=== PATIENT | male | born 1960 | race Caucasian/White ===

== ENCOUNTER 2018-07-01 08:14 | Observation (INO) | payer MEDICARE, MEDICAID ==
[2018-07-01] MEDS ORDERED: ASPIRIN 81 MG TABLET, CHEWABLE PO ONE (08:44)
--- NOTE | 2018-07-01 09:12 | RADIOLOGY REPORT (SQ) ---
EXAM DESCRIPTION: CHEST SINGLE VIEW COMPLETED DATE/TIME: 07/01/2018 9:00 am REASON FOR STUDY: lef neck and shoulder pain COMPARISON: None. EXAM PARAMETERS: NUMBER OF VIEWS: One view. TECHNIQUE: Single frontal radiographic view of the chest acquired. RADIATION DOSE: NA LIMITATIONS: None. FINDINGS: LUNGS AND PLEURA: No opacities, masses or pneumothorax. No pleural effusion. MEDIASTINUM AND HILAR STRUCTURES: No masses. Contour normal. HEART AND VASCULAR STRUCTURES: Heart normal in size. Normal vasculature. BONES: No acute findings. HARDWARE: None in the chest. OTHER: No other significant finding. IMPRESSION: NO ACUTE RADIOGRAPHIC FINDING IN THE CHEST. TECHNICAL DOCUMENTATION: JOB ID: [id number] [email or web address]- All Rights Reserved Reading location - IP/workstation name: [email or web address]
[2018-07-01 09:33] LABS: ABSOLUTE BASOPHILS # (AUTO) 0.1 10^3/uL (0.0-0.2); ABSOLUTE EOSINOPHILS # (AUTO) 0.1 10^3/uL (0.0-0.6); ABSOLUTE LYMPHOCYTES (AUTO) 0.8 10^3/uL (0.5-4.7); ABSOLUTE MONOCYTES (AUTO) 1.1 10^3/uL (0.1-1.4); ABSOLUTE NEUT (AUTO) 8.8 10^3/uL (1.7-8.2); BASOPHILS % (AUTO) 0.5 % (0-2); EOSINOPHILS % (AUTO) 0.9 % (0-6); HEMATOCRIT 45.7 % (37.9-51.0); HEMOGLOBIN 15.7 g/dL (13.5-17.0); LYMPHOCYTES % (AUTO) 7.4 % (13-45); MEAN CORPUSCULAR HEMOGLOBIN 31.7 pg (27.0-33.4); MEAN CORPUSCULAR HGB CONC 34.4 g/dL (32.0-36.0); MEAN CORPUSCULAR VOLUME 92 fl (80-97); MONOCYTES % (AUTO) 10.4 % (3-13); PLATELET COUNT 240 10^3/uL (150-450); RED BLOOD COUNT 4.96 10^6/uL (4.35-5.55); RED CELL DISTRIBUTION WIDTH 13.2 % (11.5-14.0); SEGMENTED NEUTROPHILS % (AUTO) 80.8 % (42-78); TOTAL CELLS COUNTED % (AUTO) 100 %; WHITE BLOOD COUNT 10.9 10^3/uL (4.0-10.5)
[2018-07-01] MEDS ORDERED: METHYLPREDNISOLONE INJ 125 MG/2 ML SDV IV ONE (09:35)
--- NOTE | 2018-07-01 09:39 | ER Document Report ---
ED General - General Chief Complaint: Sore Throat Stated Complaint: NECK PAIN Time Seen by Provider: 07/01/18 08:44 Mode of Arrival: Medic Information source: Patient, Relative - Sister Notes: 57-year-old normal weight, nondiabetic, nonhypertensive, non-smoker, non- hyperlipidemic c/o of left shoulder pain and bilateral neck pain since Friday worse with movement. He was doing yard work. He also started feeling sore throat on Friday. This morning at 5 he woke up and felt like he was having trouble breathing in his throat. No chest pain or shortness of breath. No nausea vomiting or diarrhea. No abdominal pain. No fever chills or sweats, no rash. 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 TRAVEL OUTSIDE OF THE [place] IN LAST 30 DAYS: No - Related Data Allergies/Adverse Reactions: coconut Allergy (Verified 07/01/18 08:50) Penicillins Allergy (Verified 07/01/18 08:50) Past Medical History - General Information source: Patient - Social History Smoking Status: Never Smoker Frequency of alcohol use: None Drug Abuse: None Lives with: Alone Family History: Reviewed & Not Pertinent Patient has suicidal ideation: No Patient has homicidal ideation: No - Medical History Notes: see above Renal/ Medical History: Denies: Hx Peritoneal Dialysis Past Surgical History: Reports: Hx Tonsillectomy Review of Systems - Review of Systems Constitutional: See HPI EENT: See HPI Cardiovascular: No symptoms reported Respiratory: No symptoms reported Gastrointestinal: No symptoms reported Genitourinary: No symptoms reported Male Genitourinary: No symptoms reported Musculoskeletal: See HPI Skin: No symptoms reported Hematologic/Lymphatic: No symptoms reported Neurological/Psychological: No symptoms reported Physical Exam - Vital signs Vitals: Temp Pulse Resp BP Pulse Ox 99.4 F 95 20 139/83 H 95 07/01/18 08:26 07/01/18 08:26 07/01/18 08:26 07/01/18 08:26 07/01/18 08:26 Interpretation: Normal, Febrile - mild - General General appearance: Appears well, Alert - HEENT Head: Normocephalic, Atraumatic Eyes: Normal Conjunctiva: Normal Pupils: PERRL Tympanic membrane: Normal Sinus: Normal Nasal: Normal Mouth/Lips: Normal Pharynx: Erythema - swelling edema to midline uvula, airway open, no compromise Neck: No: Lymphadenopathy - Respiratory Respiratory status: No respiratory distress Chest status: Nontender Breath sounds: Normal Chest palpation: Normal - Cardiovascular Rhythm: Regular Heart sounds: Normal auscultation Murmur: No - Abdominal Inspection: Normal Distension: No distension Bowel sounds: Normal Tenderness: Nontender Organomegaly: No organomegaly - Back Back: Normal, Nontender - Extremities General upper extremity: Normal inspection, Nontender, Normal color, Normal ROM , Normal temperature General lower extremity: Normal inspection, Nontender, Normal color, Normal ROM , Normal temperature, Normal weight bearing. No: Juliet's sign - Neurological Neuro grossly intact: Yes Cognition: Normal Orientation: AAOx4 [place] Coma Scale Eye Opening: Spontaneous [place] Coma Scale Verbal: Oriented [place] Coma Scale Motor: Obeys Commands Yosef Coma Scale Total: 15 Speech: Normal Motor strength normal: LUE, RUE, LLE, RLE Sensory: Normal - Psychological Associated symptoms: Normal affect, Normal mood - Skin Skin Temperature: Warm Skin Moisture: Dry Skin Color: Normal Skin irregularity: negative: Rash Course - Re-evaluation Re-evalutation: 07/01/18 12:01 Patient is feeling better after the Solu-Medrol and when I looked back at his uvula he had a spontaneously draining left peritonsillar purulent drainage. White count is mildly elevated. I ordered clindamycin 600 mg IV. 07/01/18 13:14 dr rodarte will admit the pt. the IV contrast CT of the neck result is pending. 07/01/18 13:23 - Vital Signs Vital signs: Temp Pulse Resp BP Pulse Ox 98.3 F 80 14 109/60 99 07/01/18 19:26 07/01/18 19:26 07/01/18 19:26 07/01/18 19:26 07/01/18 19:26 - Laboratory Result Diagrams: 07/01/18 09:04 07/01/18 09:04 Laboratory results interpreted by me: 07/01/18 07/01/18 07/01/18 09:04 09:04 10:43 WBC 10.9 H Seg Neutrophils % 80.8 H Lymphocytes % 7.4 L Absolute Neutrophils 8.8 H BUN 22 H Total Bilirubin 2.2 H ALT 17 L Creatine Kinase 44 L Urine Protein 30 H Urine Ketones 20 H Urine Urobilinogen 2.0 H Salicylates < 1.0 L Acetaminophen < 10 L Discharge - Discharge Clinical Impression: peritonsillar abscess draining, Uvular swelling Condition: Stable Disposition: ADMITTED INPATIENT Admitting Provider: Hospitalist Unit Admitted: Telemetry
[2018-07-01 10:03] LABS: ALANINE AMINOTRANSFERASE 17 U/L (21-72); ALBUMIN 4.6 g/dL (3.5-5.0); ALKALINE PHOSPHATASE 66 U/L (38-126); ANION GAP 11 (5-19); ASPARTATE AMINO TRANSFERASE 19 U/L (17-59); BILIRUBIN,DIRECT 0.4 mg/dL (0.0-0.4); BILIRUBIN,TOTAL 2.2 mg/dL (0.2-1.3); BLOOD UREA NITROGEN 22 mg/dL (7-20); CALCIUM 9.8 mg/dL (8.4-10.2); CARBON DIOXIDE 30 mmol/L (22-30); CHLORIDE 98 mmol/L (98-107); CREATINE KINASE 44 U/L (55-170); GLUCOSE 97 mg/dL (75-110); POTASSIUM 4.6 mmol/L (3.6-5.0); SODIUM 138.6 mmol/L (137-145); TOTAL PROTEIN 7.7 g/dL (6.3-8.2)
[2018-07-01 10:05] LABS: ACETAMINOPHEN < 10 ug/mL (10-30); ALCOHOL < 10 mg/dL (NONE DETECTED); SALICYLATE < 1.0 mg/dL (2.0-20.0)
[2018-07-01 10:14] LABS: CREATINE KINASE MB 0.22 ng/mL (<4.55)
[2018-07-01 10:15] LABS: TROPONIN I < 0.012 ng/mL
--- NOTE | 2018-07-01 10:46 | EKG REPORT ---
SEVERITY:- BORDERLINE ECG - SINUS RHYTHM PROBABLE LEFT ATRIAL ABNORMALITY : Confirmed by: Cheyanne Sommers 01-Jul-2018 10:45:18
[2018-07-01 11:16] LABS: APPEARANCE,URINE SLIGHTLY-CLOUDY; BILIRUBIN,URINE NEGATIVE (NEGATIVE); COLOR,URINE YELLOW; GLUCOSE, URINE NEGATIVE (NEGATIVE); KETONES,URINE 20 mg/dL (NEGATIVE); LEUKOCYTE ESTERASE,URINE NEGATIVE (NEGATIVE); NITRITE,URINE NEGATIVE (NEGATIVE); PROTEIN,URINE 30 mg/dL (NEGATIVE); URINE SPECIFIC GRAVITY 1.027
[2018-07-01 11:36] LABS: URINE AMPHETAMINES SCREEN NEGATIVE; URINE BARBITURATES SCREEN NEGATIVE; URINE BENZODIAZEPINES SCREEN NEGATIVE; URINE COCAINE SCREEN NEGATIVE; URINE MARIJUANA (THC) SCREEN NEGATIVE; URINE METHADONE SCREEN NEGATIVE; URINE PHENCYCLIDINE SCREEN NEGATIVE
[2018-07-01] MEDS ORDERED: RINGERS SOLUTION,LACTATED 1,000 ML IV PRN ×2 (11:52→13:09)
[2018-07-01] MEDS ORDERED: NORMAL SALINE 1000 ML 1,000 ML IV ONE (11:53)
[2018-07-01] MEDS ORDERED: CLINDAMYCIN 600 MG/D5W RTU 600 MG/50 ML RTUPB IV ONE (12:30)
--- NOTE | 2018-07-01 12:36 | ER Document Report ---
Doctor's Note Notes: 07/01/18 12:35 Patient was seen and evaluated. Does have an elevated WBC count and had difficulty breathing so EMS had to be notified to bring patient here. Looks like he may have a peritonsillar abscess. Will do CT scan at this time. Will anticipate admission for IV antibiotics. Consulted with Dr. Mota with ENT and he is comfortable keeping patient here. Will plan for admission shortly. I have seen and evaluated patient and agree with the treatment plan and medical decision making process as described in the nurse practitioner's note. 07/01/18 15:03
--- NOTE | 2018-07-01 14:24 | RADIOLOGY REPORT (SQ) ---
EXAM DESCRIPTION: CT SOFT TISSUE NECK WITH COMPLETED DATE/TIME: 07/01/2018 1:14 pm REASON FOR STUDY: neck swelling difficulty swallowing stridor, respiratory compromise COMPARISON: None. TECHNIQUE: Post IV contrasted scanning from skull base through lung apices with review of bone, soft tissue and lung windows. Reconstructed coronal and sagittal MPR images reviewed. All images stored on PACS. All CT scanners at this facility use dose modulation, iterative reconstruction, and/or weight based d osing when appropriate to reduce radiation dose to as low as reasonably achievable (ALARA). [facility]: Dose Right [facility]: CareDose [facility]: Dose Right [facility]: Teradose 4D [facility]: RTF Logic CONTRAST TYPE AND DOSE: contrast/concentration: Isovue 350.00 mg/ml; Total Contrast Delivered: 75.0 ml; Total Saline Delivered: 49.5 ml RENAL FUNCTION: Creatinine 1.1 RADIATION DOSE: CT Rad equipment meets quality standard of care and radiation dose reduction techniq ues were employed. CTDIvol: 11.8 mGy. DLP: 398 mGy-cm. . LIMITATIONS: None. FINDINGS: The uvula is markedly swollen, causing moderate narrowing of the nasopharynx. The left pharyngeal tonsil is asymmetrically enlarged, 4.3 cm craniocaudad by 2.4 cm AP by 2 cm trans verse, with the hypodensity 7 mm in size within the tonsil, worrisome for a small intra tonsillar abs cess. There is inflammation surrounding the left pharyngeal tonsil extending inferiorly into the left hypop harynx and left piriform recess region. No prevertebral phlegmon. Results discussed with Dr. Oconnor in the emergency room. SKULL BASE: Inferior brain parenchyma unremarkable MAJOR SALIVARY GLANDS: No solid or cystic masses. No inflammatory changes. LYMPHADENOPATHY: No adenopathy. MUCOSAL MASSES OR ASYMMETRY: As above LARYNX/CORDS: As above VASCULAR STRUCTURES: The major vessels are patent. LUNG APICES: Clear. BONES: Intact. THYROID: Normal size. No masses. PARANASAL SINUSES: Air-fluid level right maxillary sinus worrisome for acute sinusitis OTHER: Multiple advanced dental caries. IMPRESSION: Left pharyngeal tonsillitis with small intra tonsillar abscess. Inflammation surroundin g the left pharyngeal tonsil extending up into the soft palate/uvula and down into the supraglottic l arynx. Moderate nasopharyngeal airway narrowing from swelling of the uvula TECHNICAL DOCUMENTATION: JOB ID: [id number] Quality ID # [id number]: Final reports with documentation of one or more dose reduction techniques (e.g., Au tomated exposure control, adjustment of the mA and/or kV according to patient size, use of iterative reconstruction technique) 2010 [employer]- All Rights Reserved Reading location - IP/workstation name: [email or web address]
[2018-07-01] MEDS ORDERED: ACETAMINOPHEN 325 MG TABLET PO PRN (16:33)
[2018-07-01] MEDS ORDERED: NORMAL SALINE 1000 ML 1,000 ML IV PRN (16:33)
[2018-07-01] MEDS ORDERED: ONDANSETRON 4 MG TAB.RAPDIS PO PRN (16:33)
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
[2018-07-01] MEDS: CLINDAMYCIN 300 MG/D5W RTU 300 MG/50 ML RTUPB IV SCH (22:01)
[2018-07-02 06:05] LABS: HEMATOCRIT 39.5 % (37.9-51.0); MEAN CORPUSCULAR HEMOGLOBIN 31.1 pg (27.0-33.4); MEAN CORPUSCULAR HGB CONC 34.4 g/dL (32.0-36.0); MEAN CORPUSCULAR VOLUME 90 fl (80-97); PLATELET COUNT 227 10^3/uL (150-450); RED BLOOD COUNT 4.36 10^6/uL (4.35-5.55); RED CELL DISTRIBUTION WIDTH 13.3 % (11.5-14.0)
[2018-07-02 06:11] LABS: HEMOGLOBIN 13.6 g/dL (13.5-17.0)
[2018-07-02] MEDS: CLINDAMYCIN 300 MG/D5W RTU 300 MG/50 ML RTUPB IV SCH ×2 (06:15→13:14)
[2018-07-02 06:17] LABS: ANION GAP 11 (5-19); BLOOD UREA NITROGEN 23 mg/dL (7-20); CALCIUM 9.1 mg/dL (8.4-10.2); CARBON DIOXIDE 27 mmol/L (22-30); CHLORIDE 102 mmol/L (98-107); GLUCOSE 113 mg/dL (75-110); POTASSIUM 4.8 mmol/L (3.6-5.0); SODIUM 139.7 mmol/L (137-145)
[2018-07-02] MEDS ORDERED: ENOXAPARIN SODIUM INJ 40 MG/0.4 ML DISP.SYRIN SUBCUT SCH (10:00)
[2018-07-02] MEDS ORDERED: DEXTROSE 5% IV SCH (10:00)
[2018-07-02] MEDS ORDERED: WATER IV SCH (10:00)
[2018-07-02] MEDS ORDERED: METHYLPREDNISOLONE SOD SUCC IV SCH (10:00)
[2018-07-02] MEDS ORDERED: METHYLPREDNISOLONE INJ 40 MG/1 ML SDV IV SCH (10:00)
[2018-07-02 13:10] VITALS: BP 125/66
[2018-07-02] MEDS ORDERED: ONDANSETRON 4 MG TAB.RAPDIS PO PRN (14:00)
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
[2018-07-03] MEDS ORDERED: METHYLPREDNISOLONE INJ 125 MG/2 ML SDV IV SCH (10:00)
== END 2018-07-02 14:53 | disposition home or self-care (01) ==
LOC: ER 08:14 → INTOOBSV 13:23 → EH 13:23 → 4N 15:41
PROVIDERS: ADMIT Internal Medicine; ATTEND Internal Medicine
DX: J36 Peritonsillar abscess (principal); Z88.0 Allergy status to penicillin; R13.10 Dysphagia, unspecified; K02.9 Dental caries, unspecified; R06.00 Dyspnea, unspecified; R19.6 Halitosis; R53.1 Weakness; M25.512 Pain in left shoulder; M54.2 Cervicalgia; S09.90XS Unspecified injury of head, sequela; G25.2 Other specified forms of tremor; X58.XXXS Exposure to other specified factors, sequela; Z87.820 Personal history of traumatic brain injury; Z82.3 Family history of stroke; Z82.49 Family history of ischemic heart disease and other diseases of the circulatory system
CPT/HCPCS: 93005; 99285; 96361; 96375; 96365; 36415 ×2; 87040; 87070; 82553; 87880; 80307 ×4; 82550; 85025; 85027; 80048; 80053; 81001; 84484; 71045; 70491; 93010; G0378 ×2; A9270; J3490 ×4; J2920; J2930; J1650; J7030 ×2